=== PATIENT | female | born 1955 | race Caucasian/White ===

== ENCOUNTER → 2024-01-15 10:53 | Outpatient (REF) | payer OTHER, SELFPAY | LOC: HWRAD 10:53 | PROVIDERS: ATTENDING PHYSICIAN Physician Assistant; FAMILY PHYSICIAN Family Medicine | DX: Z78.0 Asymptomatic menopausal state (principal) | CPT/HCPCS: 77080 ==

== ENCOUNTER → 2024-08-27 16:45 | Outpatient (REF) | payer OTHER, SELFPAY | LOC: WDC 16:45 | PROVIDERS: ATTENDING PHYSICIAN Surgery; FAMILY PHYSICIAN Family Medicine | DX: Z12.31 Encounter for screening mammogram for malignant neoplasm of breast (principal) | CPT/HCPCS: 77063; 77067 ==

== ENCOUNTER 2025-06-15 10:00 | Emergency (ER) | payer OTHER, SELFPAY ==
[2025-06-15 10:01] VITALS: BP 179/86
[2025-06-15 12:10] VITALS: BP 170/71
[2025-06-15] MEDS: PROTONIX IV 80 MG IV (12:13)
[2025-06-15] MEDS: NSS 1000 IV (12:13)
[2025-06-15 12:14] VITALS: BMI 25.0
[2025-06-15 12:55] LABS: Hematocrit 42.5 % (37.0-47.0); Hemoglobin 14.5 g/dL (12.0-16.0); Mean Corp Hgb Conc. 34.1 g/dL (33.0-37.0); Mean Corpuscular Volume 85.9 fL (81.0-99.0); Nucleated Red Blood Cells % 0 %; Platelet Count 235 10^3/uL (130-400); Red Cell Dist. Width 11.9 % (11.5-14.5)
--- NOTE | 2025-06-15 12:56 | ED.GENMED ---
History of Present Illness
<Nimo Alvarez NP - Last Filed: 06/15/25 16:26>
General
Chief Complaint: Abdominal Symptoms
Source: patient
Exam Limitations: none
Time Seen by Provider: 06/15/25 11:48
Nursing documentation reviewed up to this point in time: agreed with
History of Present Illness
History of Present Illness:
69 yo female with h/o HTN, HLD, c section presents with acute gastrointestinal symptoms that began her last 2 days of a 12 day trip traveling in [facility]. The onset of symptoms occurred on 3 days ago at approximately 2:00 PM, starting with severe
nausea and vomiting 15 times that day while on a train. The vomiting was described as substantial each time. She also experienced multiple loose stools, described as diarrhea, which was initially severe but persisted mildly thereafter.
She reports being unable to lie down due to significant abdominal pain that intensified with movement and was exacerbated by the train ride. The pain was located generally in the abdominal region and was severe enough to prevent normal
activities, rated at a 5 to 6 out of 10 at present. She noted a sensation similar to �having a .�
On Monday, her symptoms continued with diminished vomiting, only one small emesis and persistent abdominal pain, which was slightly alleviated by cllj-uqj-xmshumc medications such as Tums, Gaviscon, and Dramamine. She attempted to consume water and
small amounts of food with difficulty due to continued discomfort.
During the flight home on yesterday, she experienced significant gas, abdominal pain, and minimal diarrhea, described as watery. She was advised by her , referencing possible gastroenteritis. Her nausea subsided during the flight, but
gastrointestinal discomfort persisted. She does feel like her symptoms are improving.
She got up with abdominal pain last night which resolved upon standing. However, she experienced recurring pain when attempting to recline. She consumed minimal food since the onset of symptoms: mostly crackers, half a cup of apple juice, and some
water.
Her last liquid BM was small, nonbloody at 7 a.m. today
She denies nausea, denies fever/chills. No sick contacts. She does admit to eating a lot of unfamiliar foods in [facility] and this could be contributing to her symptoms
Meds:
Simvastatin 10 mg daily.
Amlodipine, 5 mg daily.
Aspirin (baby dose).
Vitamin B3 supplements.
Past History
<Nimo Alvarez, AP OPERATOR - Last Filed: 06/15/25 16:26>
Past History
ED Past Medical History: HTN and Hypercholesterolemia
Social History
Tobacco: Non-smoker
Alcohol: None
Personal:
Living: with family
Employment: Employed (teacher)
Review of Systems
<Nimo Alvarez, AP OPERATOR - Last Filed: 06/15/25 16:26>
Review of Systems
Allergies reviewed?: Yes
All Other Systems: ROS reviewed and negative except as documented in HPI and ROS
Constitutional: Denies fever or chills
Respiratory: Denies trouble breathing
Cardiac: Denies chest pain
ABD/GI: Reports abdominal pain, nausea, vomiting, diarrhea and anorexia; Denies bloody stools or black stools
: Denies dysuria or difficulty voiding
Musculoskeletal: Reports no symptoms
Skin: Reports no symptoms
Neurological: Reports no symptoms
Phy Exam
<Nimo Alvarez, AP OPERATOR - Last Filed: 06/15/25 16:26>
Physical Exam
Physical Exam:
GENERAL: No acute distress. A&Ox3.
CONSTITUTIONAL: Afebrile.
EYES: clear, conjunctivae normal
ENMT: moist mucus membranes, Pharynx nl
RESPIRATORY: Regular respirations, nonlabored, lungs clear.
CARDIOVASCULAR: Regular rate and rhythm, no murmurs, no rubs.
GI: Soft, generally tender to palpate, normal BS
MUSCULOSKELETAL: Moves with ease. Well perfused.
SKIN: Warm, dry, pink
PSYCH: Normal mood and affect. Well kept, interactive and appropriate
NEUROLOGIC: Awake, alert and oriented. No focal neurological deficits
Course
<Nimo Alvarez AP OPERATOR - Last Filed: 06/15/25 16:26>
Orders/Labs/Results
Orders:
Orders
06/15/25 12:03
CT Abd/Pel (IV only)-DH only Urgent
Comment:
Reason For Exam: diffuse abd pain, diarrhea
IV Insert/Care/Rem.- Treatment PRN
Stool Culture Urgent
ANTONIA Source: Feces/Stool
Specimen Description:
0.9% Sodium Chloride 1000 ml [Nss] 1,000 ml IV BOLUS
Pantoprazole [Protonix IV] 80 mg IV NOW STA
06/15/25 12:14
Complete Blood Count/With Diff Urgent
Comprehensive Metabolic Panel Urgent
Lipase Urgent
06/15/25 16:17
Ketorolac [Toradol] 15 mg IV NOW STA
Abnormal Lab Results
06/15/25
12:14
WBC 14.7 H 10^3/uL
(4.8-10.8)
MPV 11.0 H fL
(7.4-10.4)
Absolute Neuts (auto) 11.0 H 10^3/uL
(1.4-6.5)
Absolute Monos (auto) 1.5 H 10^3/uL
(0.1-0.6)
Lymphocytes % 12.8 L %
(20.5-51.1)
Monocytes % 10.3 H %
(1.7-9.3)
Sodium 134 L mmol/L
(135-145)
Total Bilirubin 1.5 H mg/dl
(0.2-1.3)
06/15/25 12:14
06/15/25 12:14
Vital Signs
Initial and Last Documented VS:
Initial Vital Signs
Temp Pulse Resp BP Pulse Ox
98.4 F 99 16 179/86 97
06/15/25 10:01 06/15/25 10:01 06/15/25 10:01 06/15/25 10:01 06/15/25 10:01
Last Documented Vital Signs
Temp Pulse Resp BP Pulse Ox
98.4 F 94 17 91/72 97
06/15/25 10:01 06/15/25 13:45 06/15/25 13:45 06/15/25 13:00 06/15/25 13:45
Foster Care Social Worker consulted with Physician
Foster Care Social Worker consulted with physician?: Yes (Bas[place])
<Socrates Gracia, DO - Last Filed: 06/15/25 13:16>
Orders/Labs/Results
Orders:
Orders
06/15/25 12:03
CT Abd/Pel (IV only)-DH only Urgent
Comment:
Reason For Exam: diffuse abd pain, diarrhea
IV Insert/Care/Rem.- Treatment PRN
Stool Culture Urgent
ANTONIA Source: Feces/Stool
Specimen Description:
0.9% Sodium Chloride 1000 ml [Nss] 1,000 ml IV BOLUS
Pantoprazole [Protonix IV] 80 mg IV NOW STA
06/15/25 12:14
Complete Blood Count/With Diff Urgent
Comprehensive Metabolic Panel Urgent
Lipase Urgent
06/15/25 16:17
Ketorolac [Toradol] 15 mg IV NOW STA
Abnormal Lab Results
06/15/25
12:14
WBC 14.7 H 10^3/uL
(4.8-10.8)
MPV 11.0 H fL
(7.4-10.4)
Absolute Neuts (auto) 11.0 H 10^3/uL
(1.4-6.5)
Absolute Monos (auto) 1.5 H 10^3/uL
(0.1-0.6)
Lymphocytes % 12.8 L %
(20.5-51.1)
Monocytes % 10.3 H %
(1.7-9.3)
Sodium 134 L mmol/L
(135-145)
Total Bilirubin 1.5 H mg/dl
(0.2-1.3)
06/15/25 12:14
06/15/25 12:14
Vital Signs
Initial and Last Documented VS:
Initial Vital Signs
Temp Pulse Resp BP Pulse Ox
98.4 F 99 16 179/86 97
06/15/25 10:01 06/15/25 10:01 06/15/25 10:01 06/15/25 10:01 06/15/25 10:01
Last Documented Vital Signs
Temp Pulse Resp BP Pulse Ox
98.4 F 94 17 91/72 97
06/15/25 10:01 06/15/25 13:45 06/15/25 13:45 06/15/25 13:00 06/15/25 13:45
<Nimo Alvarez AP OPERATOR - Last Filed: 06/15/25 16:26>
MDM/Problems Addressed
Differential Diagnosis Includes:
The Differential Diagnosis includes, in no particular order and is not limited to:
- Gastroenteritis
- Food poisoning
- Diverticulitis
- Peptic ulcer disease
- Gallbladder disease
- Pancreatitis
- Small bowel obstruction
- Inflammatory bowel disease
- Appendicitis
- Bowel ischemia
MDM/Problems Addressed:
69 yo female with h/o HTN, HLD, c section presents with acute gastrointestinal symptoms that began her last 2 days of a 12 day trip traveling in [facility]. The onset of symptoms occurred on 3 days ago at approximately 2:00 PM, starting with severe
nausea and vomiting 15 times that day while on a train. The vomiting was described as substantial each time. She also experienced multiple loose stools, described as diarrhea, which was initially severe but persisted mildly thereafter.
She reports being unable to lie down due to significant abdominal pain that intensified with movement and was exacerbated by the train ride. The pain was located generally in the abdominal region and was severe enough to prevent normal
activities, rated at a 5 to 6 out of 10 at present. She noted a sensation similar to �having a .�
On Monday, her symptoms continued with diminished vomiting, only one small emesis and persistent abdominal pain, which was slightly alleviated by wynl-vtv-ykwdocz medications such as Tums, Gaviscon, and Dramamine. She attempted to consume water and
small amounts of food with difficulty due to continued discomfort.
During the flight home on yesterday, she experienced significant gas, abdominal pain, and minimal diarrhea, described as watery. She was advised by her , referencing possible gastroenteritis. Her nausea subsided during the flight, but
gastrointestinal discomfort persisted. She does feel like her symptoms are improving.
She got up with abdominal pain last night which resolved upon standing. However, she experienced recurring pain when attempting to recline. She consumed minimal food since the onset of symptoms: mostly crackers, half a cup of apple juice, and some
water.
Her last liquid BM was small, nonbloody at 7 a.m. today
She denies nausea, denies fever/chills. No sick contacts. She does admit to eating a lot of unfamiliar foods in [facility] and this could be contributing to her symptoms
Afebrile, NAD
Plan:
- Initiate intravenous fluids for hydration.
- Perform blood work.
- Conduct a CT scan of the abdomen to evaluate for any underlying pathology.
- Collect a stool sample if the patient has another episode of diarrhea.
- Monitor the patient�s response to treatment.
1:00 p.m.
CBC with mild leukocytosis most likely reactive to vomiting viral illness
CMP unremarkable
Lipase normal
3:[address] abd/pelvis w IV only contrast radiology report read: IMPRESSION:
1. Suspect acute uncomplicated interstitial edematous pancreatitis. Probable reactive inflammation of adjacent short segments of mid transverse colon and distal duodenum, versus primary colitis/duodenitis in these regions. Recommend correlation with
lipase levels to help confirm primary site of inflammation.
Considered antibiotics but pt is much improved, no fever, no further diarrhea, no bloody stools, most likely inflammatory rather than infectious
Discussed CT findings with pt and , recommended discuss with PCP and repeat imaging after inflammation resolves.
Pt states she feels much better after Protonix IV. Rx called to her pharmacy for Protonix
Pt has had no vomiting or diarrhea since arrival.
<Nimo Alvarez, AP OPERATOR - Last Filed: 06/15/25 16:26>
*Pulse Oximetry
SaO2: 99
Oxygen Mode of Delivery: Room air
Patient hypoxic: not evaluated
*Critical Care Note
Total Time (30-74mins, 75-104mins- exclusive of procedures): Not Applicable
ED Attending Note
<Nimo Alvarez AP OPERATOR - Last Filed: 06/15/25 16:26>
-
Portions of this chart may have been created with voice recognition software.� Occasional wrong word or��sound alike� substitutions may have occurred due to the inherent limitations of voice recognition software.
<Socrates Gracia DO - Last Filed: 06/15/25 13:16>
ED Attending Note
Patient seen and examined by attending physician: Yes
ED Attending Note:
I have review and agree with history and treatment plan by AMAURY Berry. My exam revealed 69 yo female in no acute distress. Will evaluate abdominal pain with ct a/p.
Discharge Plan
Departure
Patient Disposition: Home (Routine Discharge)
Date of Disposition: 06/15/25
Time of Disposition: 16:18
Patient with high blood pressure during this ER visit?: No
Condition: Good
Discharge Problem:
Gastroenteritis
Instructions: Clear Liquid Diet, [place] Diet, Abdominal Pain
Prescriptions:
New
pantoprazole [Protonix] [address] for susp in packet
40 mg PO DAILY Qty: 30 0RF
Referrals:
Edwin Collins, [Family Provider, Family Practice] - Call in 1-3 days for appt
Branden Solitario DO [Active, Gastroenterology] - As needed
Activity Restrictions/Additional Instructions:
As we discussed, you have gastroenteritis.
Your CAT scan shows inflammation about the pancreas and the bowel. It is recommended that you have a repeat study done after all the inflammation is gone. Please discuss this with your doctor
I have given you the name of a GI doctor to use if needed
I sent a prescription to your pharmacy for Protonix to take 40 mg daily for up to 30 days, take it for at least 10 days and see if that helps and then let your doctor know
Stick with a clear liquid to bland diet for the next few days until your feeling better.
You may take ibuprofen 600 mg twice a day for pain but be sure to have some food in your stomach as this can irritate your stomach
Interventions
Interventions:
*Risk Screen - Suicide Last Done: 06/15/25 10:04
*General Assessment Last Done: 06/15/25 12:16
*Neglect/Abuse Screening Last Done: 06/15/25 10:04
*ED COVID-19 Vaccine History Last Done: 06/15/25 12:16
CY-Bgnydw-Wuebaztnzk Assessment Last Done: 06/15/25 12:19
Discharge Date and Time
Print Language: CYPRIOT
[2025-06-15 13:00] VITALS: BP 91/72
[2025-06-15 13:08] LABS: ALT (SGPT) 20 U/L (0-35); AST (SGOT) 34 U/L (14-36); Albumin 4.0 g/dl (3.5-5.0); Alkaline Phosphatase 102 U/L (38-126); Blood Urea Nitrogen 16 mg/dl (7-17); Calcium 9.0 mg/dl (8.4-10.2); Carbon Dioxide 29 mmol/L (22-30); Chloride 99 mmol/L (98-107); Estimated Creatinine Clearance 65 ml/min; Glucose 99 mg/dl (70-99); Lipase 87 U/L (23-300); Potassium 3.8 mmol/L (3.5-5.1); Sodium 134 mmol/L (135-145); Total Protein 7.2 g/dl (6.3-8.2); eGFR > 60.00
[2025-06-15] MEDS: TORADOL 15 MG IV (16:23)
[2025-06-15 16:26] VITALS: BP 148/65
== END 2025-06-15 16:47 | disposition home or self-care (01) ==
LOC: EMR 10:00
PROVIDERS: Registered Nurse; EMERGENCY PHYSICIAN Emergency Medicine; FAMILY PHYSICIAN Family Medicine
DX: K52.9 Noninfective gastroenteritis and colitis, unspecified (principal); I10 Essential (primary) hypertension; E78.00 Pure hypercholesterolemia, unspecified; Z79.899 Other long term (current) drug therapy
CPT/HCPCS: 99284; 96374; 96375; 96361; 74177; 80053; 83690; 85025; Q9967

== ENCOUNTER → 2025-07-07 09:08 | Outpatient (REF) | payer OTHER, SELFPAY | LOC: RAD 09:08 | PROVIDERS: ATTENDING PHYSICIAN Physician Assistant Medical; FAMILY PHYSICIAN Family Medicine | DX: R93.5 Abnormal findings on diagnostic imaging of other abdominal regions, including retroperitoneum (principal) | CPT/HCPCS: 74177; Q9967 ==